=== PATIENT | female | born 1950 | race Caucasian/White ===

== ENCOUNTER → 2018-08-04 | Outpatient (CLI) | payer OTHER, MEDICARE ==
[~2018-08-04] MED LIST: ALPRAZOLAM 0.0.25 MG PO; ANTIHISTAMINE INH; ATIVAN1 MG PO; COLACE100 MG PO; DULERA 200 MCG/13 GM INH; FLONASE INH; HYDROCODON-ACE1 EAC7 PO; LISINOPRIL20 MG PO; LOVASTAT20 PO; MIRALAX255 GM PO; NEXIUM40 MG PO; ORPHENADRINE C100 M2 PO; PLAVIX 75 MG TA75 MG PO; PROAIR HFA8.5 GM IH; PROAIR HFA8.5 GM INH; QVAR HFA 880 MCG/UN1 INH; ROBAXIN 750 MG750 M1 PO; SYNTHROID100 MCG PO
== END ==
LOC: CAT 11:18
DX: I77.811 Abdominal aortic ectasia (principal); K76.0 Fatty (change of) liver, not elsewhere classified; Z87.19 Personal history of other diseases of the digestive system

== ENCOUNTER → 2019-02-09 | Outpatient (CLI) | payer OTHER, MEDICARE | LOC: MRI 13:37 | DX: M47.22 Other spondylosis with radiculopathy, cervical region (principal); M48.02 Spinal stenosis, cervical region; M50.121 Cervical disc disorder at C4-C5 level with radiculopathy ==

== ENCOUNTER → 2019-10-25 | Outpatient (CLI) | payer OTHER, MEDICARE | LOC: SJCVCIMAG 07:46 | DX: I71.4 Abdominal aortic aneurysm, without rupture (principal); I10 Essential (primary) hypertension; I73.9 Peripheral vascular disease, unspecified; I25.10 Atherosclerotic heart disease of native coronary artery without angina pectoris; E78.00 Pure hypercholesterolemia, unspecified; I70.1 Atherosclerosis of renal artery; I77.1 Stricture of artery; E03.9 Hypothyroidism, unspecified; Z79.899 Other long term (current) drug therapy; Z95.828 Presence of other vascular implants and grafts; Z87.891 Personal history of nicotine dependence ==

== ENCOUNTER → 2020-02-16 | Outpatient (CLI) | payer OTHER, MEDICARE | LOC: RAD 11:59 | PROVIDERS: ATTEND Pediatrics | DX: R06.02 Shortness of breath (principal) ==

== ENCOUNTER → 2020-04-26 | Outpatient (CLI) | payer OTHER, MEDICARE | LOC: SJCVCIMAG 08:56 | PROVIDERS: ATTEND Internal Medicine Cardiovascular Disease | DX: I25.10 Atherosclerotic heart disease of native coronary artery without angina pectoris (principal); I49.3 Ventricular premature depolarization; I49.9 Cardiac arrhythmia, unspecified; I10 Essential (primary) hypertension; I73.9 Peripheral vascular disease, unspecified; Z78.0 Asymptomatic menopausal state; Z87.891 Personal history of nicotine dependence ==

== ENCOUNTER → 2020-09-21 | Outpatient (CLI) | payer OTHER, MEDICARE | LOC: LAB 10:19 | PROVIDERS: ATTEND Pediatrics | DX: J02.9 Acute pharyngitis, unspecified (principal); R50.9 Fever, unspecified; R05 Cough; R06.02 Shortness of breath; Z20.822 Contact with and (suspected) exposure to COVID-19 ==

== ENCOUNTER → 2020-12-05 | Outpatient (CLI) | payer OTHER, MEDICARE | LOC: SJCVC 13:48 | PROVIDERS: ATTEND Internal Medicine Cardiovascular Disease | DX: I25.10 Atherosclerotic heart disease of native coronary artery without angina pectoris (principal); E78.00 Pure hypercholesterolemia, unspecified; I10 Essential (primary) hypertension; I77.1 Stricture of artery; I71.4 Abdominal aortic aneurysm, without rupture; I70.1 Atherosclerosis of renal artery; E78.5 Hyperlipidemia, unspecified; E03.9 Hypothyroidism, unspecified; I73.9 Peripheral vascular disease, unspecified; Z98.890 Other specified postprocedural states; Z88.8 Allergy status to other drugs, medicaments and biological substances; Z79.899 Other long term (current) drug therapy; Z87.891 Personal history of nicotine dependence ==

== ENCOUNTER → 2021-06-13 | Outpatient (CLI) | payer OTHER, MEDICARE | LOC: SJCVCIMAG 08:06 | PROVIDERS: ATTEND Internal Medicine Cardiovascular Disease | DX: T82.856A Stenosis of peripheral vascular stent, initial encounter (principal); I65.23 Occlusion and stenosis of bilateral carotid arteries; I25.10 Atherosclerotic heart disease of native coronary artery without angina pectoris; I71.4 Abdominal aortic aneurysm, without rupture; I10 Essential (primary) hypertension; E78.00 Pure hypercholesterolemia, unspecified; I77.1 Stricture of artery; I70.1 Atherosclerosis of renal artery; D64.9 Anemia, unspecified; M54.12 Radiculopathy, cervical region; E78.5 Hyperlipidemia, unspecified; E03.9 Hypothyroidism, unspecified; I73.9 Peripheral vascular disease, unspecified; Z79.899 Other long term (current) drug therapy; Z87.891 Personal history of nicotine dependence; Z88.1 Allergy status to other antibiotic agents; Z88.2 Allergy status to sulfonamides; Z88.8 Allergy status to other drugs, medicaments and biological substances ==